=== PATIENT | female | born 1970 | race Caucasian/White ===

== ENCOUNTER → 2016-11-21 | Outpatient (CLI) | payer BC | LOC: KOH-I 15:39 | DX: M25.571 Pain in right ankle and joints of right foot (principal); M79.671 Pain in right foot; Z98.890 Other specified postprocedural states | CPT/HCPCS: 73610; 73630 ==

== ENCOUNTER → 2020-11-09 | Outpatient (CLI) | payer BC, OTHER ==
[~2020-11-09] MED LIST: BIOTIN1 M1 PO; FARXIGA10 MG PO; LIPITOR TAB 1010 MG PO; LISINOPRIL20 MG PO; METFORMIN HCL1000 MG PO; RYBELSUS3 MG PO; TRICOR 145 MG145 MG PO; VITAMIN B12-FO1 EACH PO
== END ==
LOC: RAD 12:06
DX: M25.562 Pain in left knee (principal); M51.36 Other intervertebral disc degeneration, lumbar region; M17.12 Unilateral primary osteoarthritis, left knee; M48.061 Spinal stenosis, lumbar region without neurogenic claudication
CPT/HCPCS: 72100; 73562

== ENCOUNTER 2022-04-03 06:29 | Emergency (ER) | payer BC, OTHER ==
[2022-04-03 06:58] LABS: RED BLOOD COUNT 4.66 M/UL (4.00-5.10); WHITE BLOOD COUNT 8.4 K/UL (4.5-11.0)
[2022-04-03 07:26] LABS: BUN/CREATININE RATIO 13 (0-10)
== END 2022-04-03 11:36 | disposition home or self-care (01) ==
LOC: ER1 06:29
PROVIDERS: Physician Assistant
DX: U07.1 COVID-19 (principal); E11.9 Type 2 diabetes mellitus without complications; I10 Essential (primary) hypertension; Z79.899 Other long term (current) drug therapy
CPT/HCPCS: 0240U; 71045; 80053; 82550; 82553; 84484; 85025; 85379; 93005; 99285